=== PATIENT | female | born 1965 | race Caucasian/White ===

== ENCOUNTER 2017-04-01 06:18 | Emergency (ER) | payer SELFPAY ==
[~2017-04-01] VITALS: Ht 172.7 cm; Wt 90.0 kg
[2017-04-01] MEDS ORDERED: MORPHINE SULFATE 4 MG/ML CPJ (NOT FOR IM USE) IV ONE (07:00)
[2017-04-01 07:33] LABS: PARTIAL THROMBOPLASTIN TIME 23.1 sec (24.0-34.0); PROTHROMBIN TIME 10.7 sec
[2017-04-01 07:34] LABS: CARBON DIOXIDE 25 mEq/L (21-32); CHLORIDE 105 mEq/L (98-107)
[2017-04-01 07:42] LABS: TROPONIN I < 0.02 ng/mL (0.00-0.04)
[2017-04-01 07:49] LABS: BASOPHILS % 0.8 % (0.0-2.0); EOSINOPHILS % 2.9 % (0.0-5.0); HEMATOCRIT. 36.2 % (36.0-48.0); HEMOGLOBIN. 11.8 g/dL (12.0-16.0); LYMPHOCYTES % 22.9 % (20.0-50.0); MEAN CORPUSCULAR HEMOGLOBIN 29.1 pg (28.0-32.0); MEAN CORPUSCULAR VOLUME 89.2 fL (81.0-99.0); MEAN PLATELET VOLUME 7.4 fl (7.4-10.4); MONOCYTES % 8.7 % (2.0-8.0); NEUTROPHILS % 64.7 % (40.0-76.0); PLATELET 521 x1000/uL (130-400); RED BLOOD CELL COUNT 4.06 mill/uL (4.2-5.4); RED CELL DISTRIBUTION WIDTH 15.9 % (11.6-14.6)
[2017-04-01] MEDS ORDERED: SODIUM CHLORIDE 0.9% 500 ML IV ONE (07:52)
[2017-04-01 09:31] VITALS: BP 120/69
== END 2017-04-01 09:34 | disposition home or self-care (01) ==
LOC: ER 06:19
DX: R07.89 Other chest pain (principal); F17.200 Nicotine dependence, unspecified, uncomplicated; E11.9 Type 2 diabetes mellitus without complications; E03.9 Hypothyroidism, unspecified; I25.2 Old myocardial infarction
CPT/HCPCS: 36415; 71010; 80053; 83880; 84484; 85025; 85610; 85730; 93005; 96361; 96374; 99285; 99406; J2270; J7030; J7040